=== PATIENT | male | born 1970 | race American Indian/Alaskan Native ===

== ENCOUNTER 2021-05-29 04:05 | Emergency (ER) | payer OTHER ==
[2021-05-29 04:09] VITALS: BP 154/86
[2021-05-29] MEDS ORDERED: TETANUS,DIPH,PERTUSS(ACELL) VACCINE 0.5 ML SYRINGE IM ONE (04:18)
--- NOTE | 2021-05-29 05:21 | Emergency Department Report ---
ED Laceration HPI - HPI Chief Complaint: Wound/Laceration Stated Complaint: LACERATION Time Seen by Provider: 05/29/21 04:18 Occurred When: Yesterday Location: Upper Extremity Severity: mild Tetanus Status: Not up to Date Laceration Symptoms: Yes Pain, No Foreign Body Sensation, No Numbness, No Weakness Other History: This is a 51-year-old male nontoxic, well nourished in appearance, no acute signs of distress presents to the ED with c/o of left distal thumb abrasion that occurred last night around 8 PM. Patient stated he was moving a stove that caused the injury. Patient denies decreased sensation or range of motion. Patient stated that it is still bleeding which is why he came in today. Denies any numbness, tingling, fever, chills, nausea, vomiting, chest pain, shortness of breath, headache or stiff neck. Patient denies any allergies to significant past medical history. Patient is that he is not up-to- date with tetanus. ED Review of Systems ROS: Stated complaint: LACERATION Other details as noted in HPI Comment: All other systems reviewed and negative Constitutional: denies: chills, fever Eyes: denies: eye pain, eye discharge, vision change ENT: denies: ear pain, throat pain Respiratory: denies: cough, shortness of breath, wheezing Cardiovascular: denies: chest pain, palpitations Endocrine: no symptoms reported Gastrointestinal: denies: abdominal pain, nausea, diarrhea Genitourinary: denies: urgency, dysuria Musculoskeletal: denies: back pain, joint swelling, arthralgia Skin: denies: rash, lesions Neurological: denies: headache, weakness, paresthesias Psychiatric: denies: anxiety, depression Hematological/Lymphatic: denies: easy bleeding, easy bruising ED Past Medical Hx - Past Medical History Previous Medical History?: No - Surgical History Past Surgical History?: No - Social History Smoking Status: Current Every Day Smoker Substance Use Type: None - Medications Home Medications: Home Medications Medication Instructions Recorded Confirmed Last Taken Type predniSONE [Prednisone] 40 mg PO DAILY #6 tablet 11/27/14 Unknown Rx Ibuprofen [Motrin] 800 mg PO Q8HR PRN #60 tablet 03/15/15 Unknown Rx traMADoL [Ultram] 50 mg PO Q6HR PRN #20 tablet 03/15/15 Unknown Rx Laceration Physical Exam - Exam General: Vital signs noted. No distress. Alert and acting appropriately. Wound Length (cm): 1 (Abrasion) Laceration Location: Upper Extremity (Left distal thumb) Laceration Exam: Yes Normal Distal CMS, No Foreign Body, No Exposed Tendon, Vessel, or Nerve, No Tendon Injury ED Course Vital Signs 05/29/21 04:06 Temperature 98 F Pulse Rate 74 Respiratory 18 Rate Blood Pressure 154/86 [Right] O2 Sat by Pulse 100 Oximetry - Reevaluation(s) Reevaluation #1: 05/29/21 05:19 Patient is speaking in full sentences with no signs of distress noted. ED Medical Decision Making - Medical Decision Making 51-year-old male that presents with a abrasion. Patient is stable and was examined by me. A pressure dressing has been applied and bleeding has stopped and is currently under control. Patient did receive tetanus in the ER. Educated patient on wound care. Patient was instructed to follow-up with a primary care doctor in 3-5 days or if symptoms worsen and continue return to emergency room as soon as possible. At time of discharge, the patient does not seem toxic or ill in appearance. No acute signs of distress noted. Patient agrees to discharge treatment plan of care. No further questions noted by the patient. Critical care attestation.: If time is entered above; I have spent that time in minutes in the direct care of this critically ill patient, excluding procedure time. ED Disposition Clinical Impression: Abrasion of finger, left Qualifiers: Encounter type: initial encounter Qualified Code(s): S60.419A - Abrasion of unspecified finger, initial encounter Disposition: HOME / SELF CARE / HOMELESS Is pt being admited?: No Does the pt Need Aspirin: No Condition: Stable Instructions: Wound Care, Adult Additional Instructions: Follow-up with a primary care doctor in 3-5 days or if symptoms worsen and continue return to emergency room as soon as possible. Referrals: ANITRA BUCKNER MD [Primary Care Provider] - 3-5 Days DUANE VILA MD [Staff Physician] - 3-5 Days Time of Disposition: 05:20
== END 2021-05-29 05:40 | disposition home or self-care (01) ==
LOC: ED 04:05
DX: S60.312A Abrasion of left thumb, initial encounter (principal); F17.200 Nicotine dependence, unspecified, uncomplicated; Z91.013 Allergy to seafood; X58.XXXA Exposure to other specified factors, initial encounter; Y93.89 Activity, other specified; Y92.89 Other specified places as the place of occurrence of the external cause; Y99.8 Other external cause status
CPT/HCPCS: 90471; 90715; 99282